=== PATIENT | female | born 1940 | race African-American/Black ===

== ENCOUNTER 2020-03-14 10:24 | Emergency (ER) | payer MEDICARE, OTHER ==
[~2020-03-14] VITALS: Ht 165.1 cm; Wt 113.9 kg
[2020-03-14 10:32] VITALS: BP 168/94
--- NOTE | 2020-03-14 10:32 | NUR ---
ED Nurse Note: Pt ASIMQuan [id number] from [facility] c/o dry cough and sorethroat x2 days. Pt also c/o chest discomfort. Hx of spinal cord compression. Pt AAOx2, verbally responsive, follows simple command. Pt has FC 16fr patent and draining well. Afebrie. Pt placed on traffic monitor specialist. ERMD at bedside.
[2020-03-14] MEDS ORDERED: ISOSORBIDE MONO30 M1 PO (10:35)
[2020-03-14] MEDS ORDERED: ASPIRIN81 MG ORAL (10:35)
[2020-03-14] MEDS ORDERED: COLACE100 MG ORAL (10:35)
[2020-03-14] MEDS ORDERED: TESSALON PERLE100 MG ORAL (10:35)
[2020-03-14] MEDS ORDERED: CYMBALTA60 MG ORAL (10:35)
[2020-03-14] MEDS ORDERED: CARVEDILOL25 MG ORAL (10:35)
--- NOTE | 2020-03-14 11:06 | NUR ---
ED Nurse Note: IV line established. Blood and urine sent to lab.
[2020-03-14 11:22] LABS: BASOPHILS % (AUTO) 1.4 % (0.0-2.0); EOSINOPHILS % (AUTO) 0.4 % (0.0-3.0); HEMATOCRIT 47.8 % (37.0-47.0); HEMOGLOBIN 15.5 G/DL (12.0-16.0); LYMPHOCYTES % (AUTO) 33.5 % (20.0-45.0); MEAN CORPUSCULAR VOLUME 92 FL (80-99); MONOCYTES % (AUTO) 10.7 % (1.0-10.0); PLATELET COUNT 273 K/UL (150-450); RED CELL DISTRIBUTION WIDTH 14.1 % (11.6-14.8); WHITE BLOOD COUNT 5.7 K/UL (4.8-10.8)
[2020-03-14 11:33] LABS: ANION GAP 12 mmol/L (5-15); BLOOD UREA NITROGEN 13 mg/dL (7-18); CALCIUM 9.3 MG/DL (8.5-10.1); CARBON DIOXIDE 24 MMOL/L (21-32); CHLORIDE 99 MMOL/L (98-107); CREATININE 0.8 MG/DL (0.55-1.30); SODIUM 134 MMOL/L (136-145)
[2020-03-14 11:39] LABS: ALANINE AMINOTRANSFERASE 15 U/L (12-78); ALBUMIN/GLOBULIN RATIO 0.6 (1.0-2.7); ALKALINE PHOSPHATASE 146 U/L (46-116); ASPARTATE AMINO TRANSFERASE 23 U/L (15-37); BILIRUBIN,TOTAL 0.5 MG/DL (0.2-1.0)
[2020-03-14] MEDS ORDERED: cefTRIAXone 1 GM in NS 55 ML IV ONE (12:15)
[2020-03-14] MEDS ORDERED: Aspirin Baby 81mg ORAL ONE (12:15)
[2020-03-14] MEDS ORDERED: Azithromycin 500 MG in NS 275 ML IVPB ONE (12:15)
[2020-03-14 13:00] VITALS: BP 138/91
--- NOTE | 2020-03-14 13:06 | Diagnostic Imaging Report ---
Indication: Reason For Exam: COUGH Technique: Single AP view of the chest. Comparison: None. Findings: Heart is not enlarged when accounting for projection and technique. There is pulmonary vascular congestion. No airspace consolidation. No pneumothorax. Left costophrenic angle is partially excluded from view. No right-sided pleural effusion. No acute osseous abnormality. Thoracolumbar fixation hardware is noted. IMPRESSION: Pulmonary vessel congestion without airspace consolidation.
--- NOTE | 2020-03-14 13:59 | Emergency Room Report ---
History of Present Illness General Chief Complaint: Upper Respiratory Illness Source: EMS Present Illness HPI 79-year-old female here from the group home with shortness of breath. Patient says that she has had a worsening sore throat, dry cough, subjective shortness of breath over the past several days. Has not required any oxygen supplementation. She believes that she was exposed to several other patients who are positive for COVID-19. Patient has not been tested recently but did test negative about 1 month ago. At this time denies any fevers, chills, chest pain, palpitations, back pain, abdominal pain, nausea, vomiting, diarrhea, dysuria. Allergies: Coded Allergies: No Known Allergies (Unverified , 03/14/20) COVID-19 Screening Contact w/high risk pt: No Experienced COVID-19 symptoms?: No COVID-19 Testing performed BILL COLLECTOR: No Nursing Documentation-[facility] Past Medical History: No History, Except For Hx Hypertension: Yes Review of Systems All Other Systems: negative except mentioned in HPI Physical Exam Vital Signs Date Time Temp Pulse Resp B/P (MAP) Pulse Ox O2 Delivery O2 Flow Rate FiO2 03/14/20 10:28 98.8 90 20 168/94 (118) 94 Room Air Sp02 EP Interpretation: reviewed, normal General Appearance: no apparent distress, alert, non-toxic Head: normocephalic, atraumatic Eyes: bilateral eye normal inspection, bilateral eye PERRL ENT: hearing grossly normal, normal pharynx, no angioedema, normal voice Neck: full range of motion, supple/symm/no masses Respiratory: chest non-tender, lungs clear, normal breath sounds, speaking full sentences Cardiovascular #1: regular rate, rhythm, no edema Cardiovascular #2: 2+ carotid (R), 2+ carotid (L), 2+ radial (R), 2+ radial (L), 2+ dorsalis pedis (R), 2+ dorsalis pedis (L) Gastrointestinal: normal bowel sounds, non tender, soft, non-distended, no guarding, no rebound Rectal: deferred Genitourinary: normal inspection, no CVA tenderness Musculoskeletal: back normal, normal range of motion, gait/station normal, non- tender Neurologic: alert, motor strength/tone normal, oriented x3, sensory intact, responsive, speech normal Psychiatric: judgement/insight normal, memory normal, mood/affect normal, no suicidal/homicidal ideation Lymphatic: no adenopathy Medical Decision Making Diagnostic Impression: Primary Impression: COVID-19 Additional Impression: NSTEMI (non-ST elevated myocardial infarction) ER Course Procedure: XRAY Chest 1v Indication: Reason For Exam: COUGH Technique: Single AP view of the chest. Comparison: None. Findings: Heart is not enlarged when accounting for projection and technique. There is pulmonary vascular congestion. No airspace consolidation. No pneumothorax. Left costophrenic angle is partially excluded from view. No right-sided pleural effusion. No acute osseous abnormality. Thoracolumbar fixation hardware is noted. IMPRESSION: Pulmonary vessel congestion without airspace consolidation. Laboratory Tests Test 03/14/20 11:06 03/14/20 13:16 03/14/20 13:20 White Blood Count 5.7 K/UL (4.8-10.8) Red Blood Count 5.20 M/UL (4.20-5.40) Hemoglobin 15.5 G/DL (12.0-16.0) Hematocrit 47.8 % (37.0-47.0) H Mean Corpuscular Volume 92 FL (80-99) Mean Corpuscular Hemoglobin 29.8 PG (27.0-31.0) Mean Corpuscular Hemoglobin Concent 32.4 G/DL (32.0-36.0) Red Cell Distribution Width 14.1 % (11.6-14.8) Platelet Count 273 K/UL (150-450) Mean Platelet Volume 8.8 FL (6.5-10.1) Neutrophils (%) (Auto) 54.0 % (45.0-75.0) Lymphocytes (%) (Auto) 33.5 % (20.0-45.0) Monocytes (%) (Auto) 10.7 % (1.0-10.0) H Eosinophils (%) (Auto) 0.4 % (0.0-3.0) Basophils (%) (Auto) 1.4 % (0.0-2.0) Sodium Level 134 MMOL/L (136-145) L Potassium Level 4.0 MMOL/L (3.5-5.1) Chloride Level 99 MMOL/L (98-107) Carbon Dioxide Level 24 MMOL/L (21-32) Anion Gap 12 mmol/L (5-15) Blood Urea Nitrogen 13 mg/dL (7-18) Creatinine 0.8 MG/DL (0.55-1.30) Estimated Glomerular Filtration Rate > 60 mL/min (>60) Glucose Level 112 MG/DL (74-106) H Calcium Level 9.3 MG/DL (8.5-10.1) Total Bilirubin 0.5 MG/DL (0.2-1.0) Aspartate Amino Transferase (AST) 23 U/L (15-37) Alanine Aminotransferase (ALT) 15 U/L (12-78) Alkaline Phosphatase 146 U/L (46-116) H Troponin I 0.133 ng/mL (0.000-0.056) Total Protein 8.4 G/DL (6.4-8.2) H Albumin 3.0 G/DL (3.4-5.0) L Globulin 5.4 g/dL Albumin/Globulin Ratio 0.6 (1.0-2.7) L Arterial Blood pH 7.386 (7.350-7.450) Arterial Blood Partial Pressure CO2 38.0 mmHg (35.0-45.0) Arterial Blood Partial Pressure O2 51.9 mmHg (75.0-100.0) L Arterial Blood HCO3 22.3 mmol/L (22.0-26.0) Arterial Blood Oxygen Saturation 90.5 % (95-100) L Arterial Blood Base Excess -2.3 (-2-2) L Minor Test Positive Lactic Acid Level Pending Microbiology Date/Time Source Procedure Growth Status 03/14/20 11:20 Nasopharynx SARS-CoV-2 RdRp Gene Assay - Final Complete 79-year-old female here with subjective shortness of breath. Patient normal physical examination did not show any evidence of tachypnea or increased respiratory muscle usage. She was not complaining of any shortness of breath here in the emergency department. EKG showed sinus tachycardia with a rate of 108 bpm but did not show any acute ST or T wave abnormalities. Troponin however was increased. Patient received aspirin in the emergency department. Currently awaiting results of rest of labs including D-dimer so as to properly dose Lovenox. Patient was accepted for transfer to [facility] by accepting physician Dr. Coon. Last Vital Signs Date Time Temp Pulse Resp B/P (MAP) Pulse Ox O2 Delivery O2 Flow Rate FiO2 03/14/20 10:32 98.8 90 20 168/94 94 Room Air Referrals: NON PHYSICIAN (PCP) Margarito Adams M.D. Mar 14, 2020 13:58
[2020-03-14 14:21] LABS: APPEARANCE,URINE CLOUDY; BILIRUBIN, URINE 1+ (NEGATIVE); GLUCOSE, URINE (UA) NEGATIVE (NEGATIVE); KETONES,URINE 1+ (NEGATIVE); LEUKOCYTE ESTERASE ,URINE 3+ (NEGATIVE); NITRITE,URINE NEGATIVE (NEGATIVE); PH,URINE 5 (4.5-8.0); PROTEIN,URINE 2+ (NEGATIVE); UROBILINOGEN,URINE 4 MG/DL (0.0-1.0)
[2020-03-14] MEDS ORDERED: dexAMETHasone 10mg/ml Inj IV ONE (14:30)
[2020-03-14 14:34] LABS: COLOR,URINE YELLOW
[2020-03-14 15:10] LABS: CKMB 0.5 NG/ML (0.0-3.6)
[2020-03-14 15:36] VITALS: BP 135/61
[2020-03-14] MEDS ORDERED: Enoxaparin 100mg Inj SUBQ SCH (16:30)
[2020-03-14] MEDS ORDERED: Enoxaparin 120 mg inj SUBQ STA (16:35)
--- NOTE | 2020-03-14 16:45 | NUR ---
ED Nurse Note: gave report to deshawn jacobson at [facility].
[2020-03-14 17:13] VITALS: BP 135/61
--- NOTE | 2020-03-14 17:22 | NUR ---
ED Nurse Note: patient transferred to [facility] by [facility] ambulance via gurney with all belongings. . hr 112, otherwise vss. nad noted. pt will be going to room 2810. report given to deshawn jacobson.
== END 2020-03-14 17:25 | disposition short-term general hospital (02) ==
LOC: EDBD 10:24 → EMR 11:00
DX: U07.1 COVID-19 (principal); I21.4 Non-ST elevation (NSTEMI) myocardial infarction; I10 Essential (primary) hypertension
CPT/HCPCS: 36415; 71045; 80053; 81003; 82550; 82553; 82728; 82803; 83605; 83615; 83690; 83880; 84484; 85025; 85379; 85610; 85730; 86140; 87040; 87081; 87086; 87181; 93005; 96365; 96367; 96375; 99284; J0456; J0696; J1650; J7050; U0002

== ENCOUNTER 2020-05-07 12:22 | Emergency (ER) | payer MEDICARE ==
[~2020-05-07] VITALS: Ht 172.7 cm; Wt 113.4 kg
[~2020-05-07 12:22] MED LIST: ASPIRIN EC81 MG ORAL; ASPIRIN81 MG ORAL; CARVEDILOL25 MG ORAL; COLACE100 MG ORAL; CYMBALTA60 MG ORAL; DOCUSATE SODIU250 MG ORAL; ISOSORBIDE MONO30 M1 PO; LOSARTAN POTASS50 MG ORAL; TESSALON PERLE100 MG ORAL
[2020-05-07] MEDS ORDERED: PANTOPRAZOLE SO40 MG ORAL (12:23)
[2020-05-07] MEDS ORDERED: Sodium Chloride 2,600 ML IVLG ONE (12:30)
--- NOTE | 2020-05-07 12:30 | NUR ---
ED Nurse Note: Pt brought in to ER by ambulance from [facility] due to hypotension. per lead material handler, BP systolic was 70mmHg at the scene. pt aao x4 but fatigue and weak. pt is diaphoretic and cold to touch. pt came with FC in place and hematoma with brown urine noted. pt is cooperative to care and remaining calm. pt stated "I never wanted that medication. ever since i took that medication i feel horrible." pt does not recall the name of medication. pt denied chest pain but pt had vomit x1 as soon as she arrived. changed to gown and on school lunch monitor.
--- NOTE | 2020-05-07 12:35 | NUR ---
ED Nurse Note: per superintendent of schools, pt had Covid in 2019
--- NOTE | 2020-05-07 12:36 | Emergency Room Report ---
History of Present Illness General Chief Complaint: Dyspnea/Respdistress Present Illness HPI Disclaimer: Please note that this report is being documented using DRAGON technology. This can lead to erroneous entry secondary to incorrect interpretation by the dictating instrument. HPI: 79-year-old female history of hypertension, [facility] from prison [facility] complaining of shortness of breath. Initial EMS was called due to shortness of breath. On their arrival patient was hypotensive. She was diagnosed with COVID-19 in March of last year. She denies any fever abdominal pain nausea or vomiting. He denies any chest pain. PMH: hypertension PSH: Reviewed Social Hx: Currently lives in a prison facility (Pool Feliciano M.D.) Allergies: Coded Allergies: No Known Allergies (Unverified , 03/14/20) COVID-19 Screening Contact w/high risk pt: No Experienced COVID-19 symptoms?: Yes COVID-19 Testing performed CONTENT STRATEGY LEAD: No (Pool Feliciano M.D.) Patient History Reviewed Nursing Documentation: PMH: Agreed; PSxH: Agreed (Pool Feliciano M.D.) Nursing Documentation-PMH Hx Hypertension: Yes (Pool Feliciano M.D.) Review of Systems All Other Systems: negative except mentioned in HPI (Pool Feliciano M.D.) Physical Exam Vital Signs Date Time Temp Pulse Resp B/P (MAP) Pulse Ox O2 Delivery O2 Flow Rate FiO2 05/07/20 12:18 96.1 58 20 70/30 (43) 98 Room Air Sp02 EP Interpretation: reviewed, other - Low normal General Appearance: obese, other - Diaphoretic Head: normocephalic, atraumatic Eyes: bilateral eye PERRL, bilateral eye EOMI ENT: hearing grossly normal, moist mucus membranes Neck: full range of motion, supple Respiratory: lungs clear, normal breath sounds, no rhonchi, no respiratory distress, no retraction, no wheezing Cardiovascular #1: normal peripheral pulses, regular rate, rhythm, no murmur Gastrointestinal: non tender, soft, non-distended, no guarding, hernia Neurologic: alert, oriented x3, no focal defects Skin: normal color, warm/dry (Pool Feliciano M.D.) Medical Decision Making Diagnostic Impression: Primary Impression: Transient hypotension Additional Impressions: Elevated lactic acid level NSTEMI (non-ST elevated myocardial infarction) UTI (urinary tract infection) Qualified Codes: T83.511A - Infection and inflammatory reaction due to indwelling urethral catheter, initial encounter; N39.0 - Urinary tract infection, site not specified ER Course MDM: Differential diagnosis included but not limited to pneumonia, CHF, fluid overload, COVID-19, sepsis, UTI to name a few Clinical course-IV inserted. Patient apparently initially hypotensive with EMS but on arrival patient's blood pressure normotensive. Due to her history of heart disease I did not give any large IV fluid bolus. IV fluids were started however. Troponin was mildly elevated aspirin was given. At time of signout patient pending admission. Patient signed out to oncoming physician. Labs - Laboratory Tests Test 05/07/20 12:30 White Blood Count 5.6 K/UL (4.8-10.8) Red Blood Count 4.93 M/UL (4.20-5.40) Hemoglobin 14.3 G/DL (12.0-16.0) Hematocrit 46.5 % (37.0-47.0) Mean Corpuscular Volume 94 FL (80-99) Mean Corpuscular Hemoglobin 29.1 PG (27.0-31.0) Mean Corpuscular Hemoglobin Concent 30.9 G/DL (32.0-36.0) L Red Cell Distribution Width 13.9 % (11.6-14.8) Platelet Count 335 K/UL (150-450) Mean Platelet Volume 8.6 FL (6.5-10.1) Neutrophils (%) (Auto) 44.2 % (45.0-75.0) L Lymphocytes (%) (Auto) 42.0 % (20.0-45.0) Monocytes (%) (Auto) 7.8 % (1.0-10.0) Eosinophils (%) (Auto) 5.0 % (0.0-3.0) H Basophils (%) (Auto) 1.1 % (0.0-2.0) Prothrombin Time 10.7 SEC (9.30-11.50) Prothrombin Time INR 1.0 (0.9-1.1) Activated Partial Thromboplast Time 26 SEC (23-33) Sodium Level Pending Potassium Level Pending Chloride Level Pending Carbon Dioxide Level Pending Blood Urea Nitrogen Pending Creatinine Pending Estimated Glomerular Filtration Rate Pending Glucose Level Pending Lactic Acid Level Pending Calcium Level Pending Magnesium Level Pending Total Bilirubin Pending Aspartate Amino Transferase (AST) Pending Alanine Aminotransferase (ALT) Pending Alkaline Phosphatase Pending Total Creatine Kinase Pending Troponin I Pending Pro-B-Type Natriuretic Peptide Pending Total Protein Pending Albumin Pending Globulin Pending Lipase Pending On reevaluation: Plan- (Pool Feliciano M.D.) ER Course Please see above note. Patient was presented to [place] physician. I requested urinalysis. (One had been ordered.) Patient complains of nausea. Reglan ordered. Patient has indwelling land. Urine is turbid. Will start antibiotics. 1420 Patient blood pressure and pulse improved. Will repeat lactic acid. Sepsis reevaluation Nitrite + and TNTC WBCs. Repeat lactic acid slightly improved. Patient stable for transfer. Laboratory Tests Test 05/07/20 12:30 05/07/20 13:40 05/07/20 14:00 White Blood Count 5.6 K/UL (4.8-10.8) Red Blood Count 4.93 M/UL (4.20-5.40) Hemoglobin 14.3 G/DL (12.0-16.0) Hematocrit 46.5 % (37.0-47.0) Mean Corpuscular Volume 94 FL (80-99) Mean Corpuscular Hemoglobin 29.1 PG (27.0-31.0) Mean Corpuscular Hemoglobin Concent 30.9 G/DL (32.0-36.0) L Red Cell Distribution Width 13.9 % (11.6-14.8) Platelet Count 335 K/UL (150-450) Mean Platelet Volume 8.6 FL (6.5-10.1) Neutrophils (%) (Auto) 44.2 % (45.0-75.0) L Lymphocytes (%) (Auto) 42.0 % (20.0-45.0) Monocytes (%) (Auto) 7.8 % (1.0-10.0) Eosinophils (%) (Auto) 5.0 % (0.0-3.0) H Basophils (%) (Auto) 1.1 % (0.0-2.0) Prothrombin Time 10.7 SEC (9.30-11.50) Prothrombin Time INR 1.0 (0.9-1.1) Activated Partial Thromboplast Time 26 SEC (23-33) Sodium Level 146 MMOL/L (136-145) H Potassium Level 4.3 MMOL/L (3.5-5.1) Chloride Level 108 MMOL/L (98-107) H Carbon Dioxide Level 29 MMOL/L (21-32) Anion Gap 9 mmol/L (5-15) Blood Urea Nitrogen 14 mg/dL (7-18) Creatinine 0.8 MG/DL (0.55-1.30) Estimated Glomerular Filtration Rate > 60 mL/min (>60) Glucose Level 145 MG/DL (74-106) H Lactic Acid Level 2.80 mmol/L (0.4-2.0) H 2.70 mmol/L (0.66-2.22) H Calcium Level 9.8 MG/DL (8.5-10.1) Magnesium Level 2.0 MG/DL (1.8-2.4) Total Bilirubin 0.6 MG/DL (0.2-1.0) Aspartate Amino Transferase (AST) 19 U/L (15-37) Alanine Aminotransferase (ALT) 16 U/L (12-78) Alkaline Phosphatase 119 U/L (46-116) H Total Creatine Kinase 60 U/L (26-308) Troponin I 0.068 ng/mL (0.000-0.056) Pro-B-Type Natriuretic Peptide 216 pg/mL (0-125) H Total Protein 7.4 G/DL (6.4-8.2) Albumin 2.8 G/DL (3.4-5.0) L Globulin 4.6 g/dL Albumin/Globulin Ratio 0.6 (1.0-2.7) L Lipase 127 U/L (73-393) Urine Color Pale yellow Urine Appearance Turbid Urine pH 6 (4.5-8.0) Urine Specific Gates 1.020 (1.005-1.035) Urine Protein 3+ (NEGATIVE) H Urine Glucose (UA) Negative (NEGATIVE) Urine Ketones 1+ (NEGATIVE) H Urine Blood 4+ (NEGATIVE) H Urine Nitrite Positive (NEGATIVE) H Urine Bilirubin Negative (NEGATIVE) Urine Urobilinogen 1 MG/DL (0.0-1.0) H Urine Leukocyte Esterase 3+ (NEGATIVE) H Urine RBC 0-2 /HPF (0 - 2) Urine WBC Tntc /HPF (0 - 2) H Urine Squamous Epithelial Cells Occasional /LPF Urine Bacteria Many /HPF (NONE) H (Jim Muñoz MD) EKG Diagnostic Results Troponin ordered: Yes Rate: normal Rhythm: NSR Other Impression Rate of 94, prolonged QT, (Pool Feliciano M.D.) Rhythm Strip Diag. Results EP Interpretation: yes Rate: 96 Rhythm: NSR, other - Occasional PVC (Pool Feliciano M.D.) EP Interpretation: yes Rhythm: NSR, no PVC's, no ectopy (Jim Muñoz MD) Chest X-Ray Diagnostic Results Chest X-Ray Diagnostic Results : Chest X-Ray Ordered: Yes # of Views/Limited/Complete: 1 View Indication: Other EP Interpretation: Yes Interpretation: no effusion, no pneumothorax, other - Cardiomegaly Impression: Other Electronically Signed by: Electronically signed by Jim uMñoz MD (Jim Muñoz MD) Last Vital Signs Date Time Temp Pulse Resp B/P (MAP) Pulse Ox O2 Delivery O2 Flow Rate FiO2 05/07/20 12:18 96.1 58 20 70/30 (43) 98 Room Air (Pool Feliciano M.D.) Last Vital Signs Date Time Temp Pulse Resp B/P (MAP) Pulse Ox O2 Delivery O2 Flow Rate FiO2 05/07/20 15:01 83 16 138/82 95 Nasal Cannula 2.0 05/07/20 14:04 97.5 Status: improved (Jim Muñoz MD) Disposition: SHORT-TERM HOSP Condition: Serious Pool Feliciano M.D. May 07, 2020 12:36 Jim Muñoz MD May 07, 2020 14:19
[2020-05-07 12:46] LABS: BASOPHILS % (AUTO) 1.1 % (0.0-2.0); HEMATOCRIT 46.5 % (37.0-47.0); HEMOGLOBIN 14.3 G/DL (12.0-16.0); MEAN CORPUSCULAR VOLUME 94 FL (80-99); MONOCYTES % (AUTO) 7.8 % (1.0-10.0); NEUTROPHILS % (AUTO) 44.2 % (45.0-75.0); PLATELET COUNT 335 K/UL (150-450); RED BLOOD COUNT 4.93 M/UL (4.20-5.40); RED CELL DISTRIBUTION WIDTH 13.9 % (11.6-14.8); WHITE BLOOD COUNT 5.6 K/UL (4.8-10.8)
--- NOTE | 2020-05-07 12:50 | NUR ---
ED Nurse Note: x-ray at the bedside.
[2020-05-07 13:17] LABS: ANION GAP 9 mmol/L (5-15); BLOOD UREA NITROGEN 14 mg/dL (7-18); CALCIUM 9.8 MG/DL (8.5-10.1); CARBON DIOXIDE 29 MMOL/L (21-32); CHLORIDE 108 MMOL/L (98-107); CREATININE 0.8 MG/DL (0.55-1.30); POTASSIUM 4.3 MMOL/L (3.5-5.1); SODIUM 146 MMOL/L (136-145)
[2020-05-07] MEDS ORDERED: Morphine Sulfate 2mg/ml Inj(IV/IM USE ONLY) ONE (13:20)
[2020-05-07 13:27] LABS: ALANINE AMINOTRANSFERASE 16 U/L (12-78); ALBUMIN 2.8 G/DL (3.4-5.0); ALBUMIN/GLOBULIN RATIO 0.6 (1.0-2.7); ALKALINE PHOSPHATASE 119 U/L (46-116); ASPARTATE AMINO TRANSFERASE 19 U/L (15-37); BILIRUBIN,TOTAL 0.6 MG/DL (0.2-1.0); CREATINE KINASE 60 U/L (26-308)
[2020-05-07] MEDS ORDERED: Morphine Sulfate 2mg/ml Inj(IV/IM USE ONLY) IVP ONE (13:30)
[2020-05-07] MEDS ORDERED: Aspirin Baby 81mg ORAL ONE (13:45)
--- NOTE | 2020-05-07 13:45 | Diagnostic Imaging Report ---
Indication: Shortness of breath Technique: One view of the chest Comparison: 03/14/2020 Findings: Exam is limited by body habitus, suboptimal inspiration. The heart is enlarged. There is mild pulmonary venous congestion demonstrated. No focal airspace consolidation. The pleural spaces are grossly clear. Again demonstrated is lower thoracic spine fusion hardware Impression: Cardiomegaly Bilateral mild pulmonary venous congestion Other findings as noted
[2020-05-07 14:04] VITALS: BP_SYST 137; BP_DIAS 64; BP_DIAS 84
--- NOTE | 2020-05-07 14:17 | NUR ---
ED Nurse Note: pt still has N/V. ERMD made aware.
[2020-05-07] MEDS ORDERED: Metoclopramide 10mg/2ml Inj ONE (14:19)
--- NOTE | 2020-05-07 14:21 | NUR ---
ED Nurse Note: urine sent. pt relates she is having pain. primary rn caleb platt aware
[2020-05-07 14:28] LABS: APPEARANCE,URINE TURBID; BILIRUBIN, URINE NEGATIVE (NEGATIVE); GLUCOSE, URINE (UA) NEGATIVE (NEGATIVE); KETONES,URINE 1+ (NEGATIVE); LEUKOCYTE ESTERASE ,URINE 3+ (NEGATIVE); NITRITE,URINE POSITIVE (NEGATIVE); PH,URINE 6 (4.5-8.0); PROTEIN,URINE 3+ (NEGATIVE); UROBILINOGEN,URINE 1 MG/DL (0.0-1.0)
[2020-05-07] MEDS ORDERED: Vancomycin 1 GM in NS 275 ML IVPB ONE (14:30)
[2020-05-07] MEDS ORDERED: Metoclopramide 10mg/2ml Inj IVP ONE (14:30)
[2020-05-07] MEDS ORDERED: cefTRIAXone 1 GM in NS 55 ML IVPB ONE (14:30)
[2020-05-07 14:31] LABS: COLOR,URINE PALE YELLOW
--- NOTE | 2020-05-07 14:36 | NUR ---
ED Nurse Note: pt saturating between 88%-90% in room air. put pt on 2L/min via NC. ERMD made aware. O2 sat increased to 93% - 95%.
[2020-05-07 15:01] VITALS: BP 138/82
--- NOTE | 2020-05-07 15:21 | NUR ---
ED Nurse Note: Stephane given updates as to urine results. pending transfer.
== END 2020-05-07 16:30 | disposition short-term general hospital (02) ==
LOC: EDBD 12:22 → EMR 12:51
DX: I21.4 Non-ST elevation (NSTEMI) myocardial infarction (principal); I95.89 Other hypotension; R79.89 Other specified abnormal findings of blood chemistry; T83.511A Infection and inflammatory reaction due to indwelling urethral catheter, initial encounter; N39.0 Urinary tract infection, site not specified; I10 Essential (primary) hypertension; Z86.16 Personal history of COVID-19
CPT/HCPCS: 36415; 71045; 80053; 81003; 82550; 83605; 83690; 83735; 83880; 84484; 85025; 85610; 85730; 86850; 86900; 86901; 87040; 87081; 87086; 87181; 93005; 96361; 96365; 96367; 96375; 99284; J0696; J2270; J2405; J2765; J3370; J7030; J7050; U0004